=== PATIENT | male | born 1965 | race Hispanic/Latino ===

== ENCOUNTER 2020-12-31 02:26 | Inpatient (IN) | payer OTHER, SELFPAY ==
[~2020-12-31 02:26] MED LIST: Iopamidol 370 76% 100 ML VIAL ONE
[2020-12-31] MEDS ORDERED: ceFAZolin 2 GM/DEX 5% 100 ML BAG ONE (02:31)
[2020-12-31] MEDS ORDERED: Boostrix 0.5 ML (Tdap) VIAL ONE (02:31)
[2020-12-31] MEDS ORDERED: Ondansetron PF 4 MG/2 ML Vial ONE (02:31)
[2020-12-31] MEDS ORDERED: Morphine 4 MG/ML VIAL ONE ×2 (02:31→04:14)
[2020-12-31 02:57] LABS: #Basophils 0.1 thou/uL (0.0-0.2); #Eosinphils 0.2 thou/uL (0.0-0.7); #Lymphocytes 5.3 thou/uL (1.20-3.40); #Monocytes 1.1 thou/uL (0.11-0.59); #Neutrophils 12.2 thou/uL (1.40-6.50); %Basophils 0.5 % (0.0-1.0); %Eosinophils 1.2 % (0.0-10.0); %Monocytes 5.8 % (0.0-10.0); %Neutrophils 64.6 % (42.0-75.0); Hemoglobin 15.5 g/dL (14.0-18.0); Mean Corpuscular HGB CONC 35.2 g/dL (32.0-36.0); Mean Corpuscular Hemoglobin 30.2 pg (27.0-31.0); Mean Corpuscular Volume 85.8 fL (78.0-98.0); Mean Platelet Volume 7.6 fL (7.4-10.4); Platelet Count 286 thou/uL (130-400); RBC Distribution Width 11.9 % (11.5-14.5); Red Blood Cell (RBC) Count 5.14 mill/uL (4.70-6.10); White Blood Cell (WBC) Count 18.9 thou/uL (4.8-10.8)
[2020-12-31 03:10] LABS: ALT (SGPT) 80 U/L (8-55); AST (SGOT) 69 U/L (5-34); Albumin 3.7 g/dL (3.5-5.0); Alkaline Phosphatase 89 U/L (40-110); Anion Gap 18 mmol/L (10-20); BUN (Urea Nitrogen) 15 mg/dL (8.4-25.7); Bilirubin, Total 0.6 mg/dL (0.2-1.2); Calc. Creatinine Clearance 0 mL/min (70-130); Calcium 8.8 mg/dL (7.8-10.44); Carbon Dioxide 16 mmol/L (22-29); Chloride 107 mmol/L (98-107); Globulin 2.4 g/dL (2.4-3.5); Glucose 330 mg/dL (70-105); Lipase 21 U/L (8-78); Potassium 3.7 mmol/L (3.5-5.1); Protein, Total 6.1 g/dL (6.0-8.3); Sodium 137 mmol/L (136-145)
[2020-12-31] MEDS ORDERED: Diazepam 10 MG/2 ML SYRINGE ONE (03:28)
[2020-12-31] MEDS ORDERED: Fentanyl 100 MCG/2 ML VIAL ONE ×2 (03:41→07:49)
[2020-12-31] MEDS ORDERED: Neomycin-Polymyxin 1 ML AMP ONE (04:23)
[2020-12-31] MEDS ORDERED: Dextrose 5% in Water 1,000 ML IV PRN (04:43)
[2020-12-31] MEDS ORDERED: Morphine 4 MG/ML VIAL SLOW IVP PRN (04:43)
[2020-12-31] MEDS ORDERED: Ondansetron PF 4 MG/2 ML Vial IVP PRN (04:43)
[2020-12-31] MEDS ORDERED: Dextrose 50% Abboject 50 ML SYRINGE SLOW IVP PRN (04:43)
[2020-12-31] MEDS ORDERED: Sodium Chloride 0.9% 1,000 ML IV SCH (04:45)
[2020-12-31] MEDS ORDERED: Cyclobenzaprine 10 MG TAB PO PRN (04:47)
[2020-12-31] MEDS ORDERED: traMADol HCl 50 MG TAB PO PRN (04:47)
[2020-12-31] MEDS ORDERED: Succinylcholine 200 MG/10 ml SYRINGE FS ONE (04:50)
[2020-12-31] MEDS ORDERED: PROPOFOL 200 MG/20 ML VIAL ONE (04:50)
[2020-12-31] MEDS ORDERED: Glycopyrrolate 0.2 MG/ML 5 ML SYRINGE ONE (04:50)
[2020-12-31] MEDS ORDERED: Lidocaine 1% PF 5 ML VIAL ONE (04:50)
[2020-12-31] MEDS ORDERED: Rocuronium Bromide 10 MG/ML (10ML VIAL) ONE (04:50)
[2020-12-31] MEDS ORDERED: Insulin Regular 300 UNITS/3 ML VIAL ONE (05:03)
[2020-12-31] MEDS ORDERED: Ondansetron HCl/PF 4 MG/2 ML Vial IVP PRN (06:44)
[2020-12-31] MEDS ORDERED: Promethazine HCl 25 MG/ML VIAL IVPB PRN (06:44)
[2020-12-31] MEDS ORDERED: Promethazine HCl 25 MG/ML VIAL IM PRN (06:44)
[2020-12-31 07:40] LABS: SARS-CoV-2 NAA Rapid Test Not Detected (NotDetected)
[2020-12-31 10:46] VITALS: BMI 42.0
[2020-12-31] MEDS: Gabapentin 300 MG CAP PO SCH ×3 (11:01→20:18)
[2020-12-31] MEDS: Polyethylene Glycol 3350 17 GM Packet PO SCH (11:03)
[2020-12-31] MEDS: Senokot S 8.6-50 MG TAB PO SCH ×2 (11:03→20:17)
[2020-12-31] MEDS: Famotidine 20 MG TAB PO SCH ×2 (11:03→20:17)
[2020-12-31] MEDS: Acetaminophen 500 MG TAB PO SCH ×4 (11:08→23:30)
[2020-12-31] MEDS: Ibuprofen 200 MG TAB PO SCH ×4 (13:52→20:20)
[2020-12-31] MEDS: CEFAZOLIN 2 GM in Premix Bag 1 BAG IVPB SCH ×3 (15:00→22:28)
[2020-12-31] MEDS: Insulin Regular 300 UNITS/3 ML VIAL SC PRN ×2 (18:36→21:59)
[2020-12-31] MEDS: traMADol HCl 50 MG TAB PO PRN (21:58)
[2021-01-01 05:31] LABS: #Basophils 0.1 thou/uL (0.0-0.2); #Eosinphils 0.1 thou/uL (0.0-0.7); #Lymphocytes 3.1 thou/uL (1.20-3.40); #Neutrophils 6.1 thou/uL (1.40-6.50); %Basophils 0.5 % (0.0-1.0); %Eosinophils 1.3 % (0.0-10.0); %Lymphocytes 29.7 % (21.0-51.0); %Monocytes 9.4 % (0.0-10.0); %Neutrophils 59.1 % (42.0-75.0); Hemoglobin 12.3 g/dL (14.0-18.0); Mean Corpuscular HGB CONC 34.3 g/dL (32.0-36.0); Mean Corpuscular Hemoglobin 29.5 pg (27.0-31.0); Mean Corpuscular Volume 85.9 fL (78.0-98.0); Mean Platelet Volume 7.7 fL (7.4-10.4); Platelet Count 216 thou/uL (130-400); RBC Distribution Width 11.9 % (11.5-14.5); Red Blood Cell (RBC) Count 4.17 mill/uL (4.70-6.10); White Blood Cell (WBC) Count 10.3 thou/uL (4.8-10.8)
[2021-01-01 05:38] LABS: Anion Gap 11 mmol/L (10-20); BUN (Urea Nitrogen) 10 mg/dL (8.4-25.7); Calc. Creatinine Clearance 158 mL/min (70-130); Carbon Dioxide 24 mmol/L (22-29); Chloride 102 mmol/L (98-107); Glucose 206 mg/dL (70-105); Magnesium 1.7 mg/dL (1.6-2.6); Phosphorus 2.8 mg/dL (2.3-4.7); Potassium 3.4 mmol/L (3.5-5.1); Sodium 134 mmol/L (136-145)
[2021-01-01] MEDS: Insulin Regular 300 UNITS/3 ML VIAL SC PRN ×3 (06:19→22:12)
[2021-01-01] MEDS: Ibuprofen 200 MG TAB PO SCH ×3 (06:20→20:23)
[2021-01-01] MEDS: Acetaminophen 500 MG TAB PO SCH ×3 (06:21→20:21)
[2021-01-01] MEDS: CEFAZOLIN 2 GM in Premix Bag 1 BAG IVPB SCH ×2 (06:29→16:45)
[2021-01-01] MEDS ORDERED: Magnesium Sulfate 3 GM in Sodium Chloride 0.9% 100 ML IV SCH (08:00)
[2021-01-01] MEDS ORDERED: Potassium Phosphate 30 MMOL, Magnesium Sulfate 3 GM in Sodium Chloride 0.9% 250 ML 250 ML IVPB SCH (08:00)
[2021-01-01] MEDS ORDERED: Insulin Regular 300 UNITS/3 ML VIAL SC PRN (09:02)
[2021-01-01] MEDS: Senokot S 8.6-50 MG TAB PO SCH ×2 (09:23→20:23)
[2021-01-01] MEDS: Famotidine 20 MG TAB PO SCH ×2 (09:24→20:23)
[2021-01-01] MEDS: Gabapentin 300 MG CAP PO SCH ×3 (09:25→20:23)
[2021-01-01] MEDS: Polyethylene Glycol 3350 17 GM Packet PO SCH (09:28)
[2021-01-01] MEDS: Enoxaparin Sodium 30 MG/0.3 ML SYRINGE SC SCH ×2 (09:47→20:24)
[2021-01-01] MEDS: Lantus 1000 UNITS/10 ML VIAL SC SCH (10:01)
[2021-01-01] MEDS ORDERED: Magnesium Citrate 300 ML BOT PO SCH (10:45)
[2021-01-01] MEDS ORDERED: glipiZIDE 5 MG TAB PO SCH (19:45)
[2021-01-01] MEDS ORDERED: metFORMIN 500 MG TAB PO SCH (19:45)
[2021-01-01] MEDS: Atorvastatin Calcium 20 MG TAB PO SCH (20:23)
[2021-01-01] MEDS: CEFAZOLIN 2 GM, Admixture Fee 1 EACH in Sodium Chloride 0.9% 100 ML IVPB SCH (22:12)
[2021-01-02] MEDS: Acetaminophen 500 MG TAB PO SCH ×3 (05:27→17:11)
[2021-01-02] MEDS: Ibuprofen 200 MG TAB PO SCH ×2 (05:27→14:37)
[2021-01-02] MEDS: CEFAZOLIN 2 GM, Admixture Fee 1 EACH in Sodium Chloride 0.9% 100 ML IVPB SCH (05:27)
[2021-01-02 06:26] LABS: Anion Gap 12 mmol/L (10-20); BUN (Urea Nitrogen) 10 mg/dL (8.4-25.7); Calc. Creatinine Clearance 168 mL/min (70-130); Calcium 8.2 mg/dL (7.8-10.44); Carbon Dioxide 27 mmol/L (22-29); Chloride 105 mmol/L (98-107); Glucose 155 mg/dL (70-105); Magnesium 2.3 mg/dL (1.6-2.6); Potassium 3.5 mmol/L (3.5-5.1); Sodium 140 mmol/L (136-145)
[2021-01-02] MEDS ORDERED: Potassium Chloride 20 MEQ TAB PO SCH (08:00)
[2021-01-02] MEDS: Enoxaparin Sodium 30 MG/0.3 ML SYRINGE SC SCH (08:52)
[2021-01-02] MEDS: Polyethylene Glycol 3350 17 GM Packet PO SCH (08:52)
[2021-01-02] MEDS: Senokot S 8.6-50 MG TAB PO SCH (08:53)
[2021-01-02] MEDS: Lantus 1000 UNITS/10 ML VIAL SC SCH (08:53)
[2021-01-02] MEDS: glipiZIDE 5 MG TAB PO SCH ×2 (08:53→17:11)
[2021-01-02] MEDS: metFORMIN 500 MG TAB PO SCH ×2 (08:54→17:11)
[2021-01-02] MEDS: Atorvastatin Calcium 20 MG TAB PO SCH (08:54)
[2021-01-02] MEDS: Famotidine 20 MG TAB PO SCH (08:54)
[2021-01-02] MEDS: Gabapentin 300 MG CAP PO SCH ×2 (08:54→14:37)
[2021-01-02] MEDS ORDERED: Potassium Chloride 10 MEQ in Premix Bag 1 BAG IVPB SCH (09:00)
[2021-01-02] MEDS ORDERED: Lisinopril 10 MG TAB PO SCH (09:00)
[2021-01-02 11:44] VITALS: BP 151/87; TEMP 98.8
[2021-01-02] MEDS: traMADol HCl 50 MG TAB PO PRN (14:40)
== END 2021-01-02 17:30 | disposition home or self-care (01) | DRG 493 ==
LOC: ERS 02:26 → SDC 04:35 → SURG B 04:47
PROVIDERS: ADMIT Orthopaedic Surgery; ATTEND Surgery
PROC: 0QSG06Z Reposition Right Tibia with Intramedullary Internal Fixation Device, Open Approach (ICD-10-PCS; principal; 2020-12-31)
DX: S82.201B Unspecified fracture of shaft of right tibia, initial encounter for open fracture type I or II (principal); Z68.42 Body mass index [BMI] 45.0-49.9, adult; S82.401B Unspecified fracture of shaft of right fibula, initial encounter for open fracture type I or II; V09.9XXA Pedestrian injured in unspecified transport accident, initial encounter; Y92.89 Other specified places as the place of occurrence of the external cause; I10 Essential (primary) hypertension; E11.9 Type 2 diabetes mellitus without complications; K40.90 Unilateral inguinal hernia, without obstruction or gangrene, not specified as recurrent; E78.5 Hyperlipidemia, unspecified; E66.9 Obesity, unspecified; Z20.822 Contact with and (suspected) exposure to COVID-19
CPT/HCPCS: 29515; 36415; 36416; 70450; 70486; 71260; 72125; 74177; 76000; 80048; 80053; 83690; 83735; 84100; 85025; 90471; 90715; 93005; 96365; 96374; 96375; C1713; G0390; J0690; J1650; J1815; J2270; J2405; J2704; J3010; J3360; J3475; J3480; J3490; J7050; Q9967; U0002

== ENCOUNTER 2021-02-19 13:57 | Inpatient (IN) | payer OTHER, SELFPAY ==
[2021-02-19 16:43] LABS: #Basophils 0.1 thou/uL (0.0-0.2); #Eosinphils 0.1 thou/uL (0.0-0.7); #Lymphocytes 2.7 thou/uL (1.20-3.40); #Monocytes 0.7 thou/uL (0.11-0.59); %Basophils 0.8 % (0.0-1.0); %Monocytes 7.2 % (0.0-10.0); Hemoglobin 15.8 g/dL (14.0-18.0); Mean Corpuscular HGB CONC 31.4 g/dL (32.0-36.0); Mean Corpuscular Hemoglobin 27.4 pg (27.0-31.0); Mean Corpuscular Volume 87.2 fL (78.0-98.0); Mean Platelet Volume 7.2 fL (7.4-10.4); Platelet Count 313 thou/uL (130-400); RBC Distribution Width 11.9 % (11.5-14.5); Red Blood Cell (RBC) Count 5.76 mill/uL (4.70-6.10); White Blood Cell (WBC) Count 9.6 thou/uL (4.8-10.8)
[2021-02-19 16:54] VITALS: BMI 39.8
[2021-02-19] MEDS ORDERED: TETANUS AND DIPHTHERIA TOX/PF 0.5 ML DISP.SYRIN IM SCH (17:00)
[2021-02-19] MEDS ORDERED: traMADol HCl 50 MG TAB PO PRN (17:00)
[2021-02-19] MEDS ORDERED: Communication Order-Pharmacy FS SCH (17:00)
[2021-02-19] MEDS ORDERED: Dextrose 5% in Water 1,000 ML IV PRN (18:51)
[2021-02-19] MEDS ORDERED: Dextrose 50% Abboject 50 ML SYRINGE SLOW IVP PRN (18:51)
[2021-02-19] MEDS ORDERED: Melatonin 3 MG TAB PO PRN (18:53)
[2021-02-19] MEDS ORDERED: hydrALAZINE 20 MG/ML VIAL SLOW IVP PRN (18:53)
[2021-02-19] MEDS ORDERED: Morphine 4 MG/ML VIAL SLOW IVP PRN ×2 (18:53→19:16)
[2021-02-19] MEDS ORDERED: Bisacodyl 5 MG TAB PO PRN (18:55)
[2021-02-19] MEDS ORDERED: Senokot S 8.6-50 MG TAB PO PRN (18:55)
[2021-02-19] MEDS ORDERED: Bisacodyl 10 MG SUPP PR PRN (18:55)
[2021-02-19] MEDS ORDERED: Ondansetron PF 4 MG/2 ML Vial IVP PRN (18:55)
[2021-02-19] MEDS ORDERED: Non-Formulary Item 1 EACH (Dulaglutide [Trulicity] 0.75 MG/0.5 ML Pen.Injctr) SC SCH (19:00)
[2021-02-19 19:42] LABS: ALT (SGPT) 32 U/L (8-55); AST (SGOT) 19 U/L (5-34); Albumin 4.2 g/dL (3.5-5.0); Alkaline Phosphatase 108 U/L (40-110); Anion Gap 14 mmol/L (10-20); BUN (Urea Nitrogen) 18 mg/dL (8.4-25.7); Bilirubin, Total 0.5 mg/dL (0.2-1.2); Calc. Creatinine Clearance 155 mL/min (70-130); Calcium 9.6 mg/dL (7.8-10.44); Carbon Dioxide 22 mmol/L (22-29); Chloride 103 mmol/L (98-107); Globulin 3.2 g/dL (2.4-3.5); Glucose 181 mg/dL (70-105); Protein, Total 7.4 g/dL (6.0-8.3); Sodium 135 mmol/L (136-145)
[2021-02-19] MEDS: Atorvastatin Calcium 20 MG TAB PO SCH (20:12)
[2021-02-19] MEDS: Famotidine/PF 20 mg/2ml Vial SLOW IVP SCH (20:12)
[2021-02-19] MEDS: Gabapentin 300 MG CAP PO SCH (20:12)
[2021-02-19] MEDS: HumaLOG 300 UNITS/3 ML VIAL SC PRN (20:18)
[2021-02-19 21:17] LABS: SARS-CoV-2 PCR by NAA Not Detected (NotDetected)
[2021-02-20 05:19] LABS: #Basophils 0.1 thou/uL (0.0-0.2); #Eosinphils 0.3 thou/uL (0.0-0.7); #Lymphocytes 3.7 thou/uL (1.20-3.40); #Neutrophils 6.4 thou/uL (1.40-6.50); %Basophils 0.6 % (0.0-1.0); %Eosinophils 2.3 % (0.0-10.0); %Lymphocytes 32.4 % (21.0-51.0); %Monocytes 8.5 % (0.0-10.0); %Neutrophils 56.2 % (42.0-75.0); Hemoglobin 14.6 g/dL (14.0-18.0); Mean Corpuscular HGB CONC 32.5 g/dL (32.0-36.0); Mean Corpuscular Hemoglobin 28.3 pg (27.0-31.0); Mean Corpuscular Volume 87.1 fL (78.0-98.0); Mean Platelet Volume 6.9 fL (7.4-10.4); Platelet Count 303 thou/uL (130-400); RBC Distribution Width 11.9 % (11.5-14.5); Red Blood Cell (RBC) Count 5.15 mill/uL (4.70-6.10); White Blood Cell (WBC) Count 11.4 thou/uL (4.8-10.8)
[2021-02-20 05:43] LABS: ALT (SGPT) 32 U/L (8-55); AST (SGOT) 26 U/L (5-34); Albumin 3.7 g/dL (3.5-5.0); Alkaline Phosphatase 96 U/L (40-110); Anion Gap 13 mmol/L (10-20); BUN (Urea Nitrogen) 16 mg/dL (8.4-25.7); Bilirubin, Total 0.5 mg/dL (0.2-1.2); Calc. Creatinine Clearance 151 mL/min (70-130); Calcium 9.3 mg/dL (7.8-10.44); Carbon Dioxide 24 mmol/L (22-29); Cardiac Risk 4.3 (Less than 4.5); Chloride 105 mmol/L (98-107); Cholesterol 124 mg/dl (< 200 Desired); Glucose 149 mg/dL (70-105); HDL Cholesterol 29 mg/dL (>60 Neg Risk); LDL Cholesterol, Calculated 51 mg/dL; Potassium 4.3 mmol/L (3.5-5.1); Protein, Total 6.7 g/dL (6.0-8.3); Sodium 138 mmol/L (136-145); Triglycerides 221 mg/dL (Less than 150)
[2021-02-20] MEDS: Gabapentin 300 MG CAP PO SCH (07:47)
[2021-02-20] MEDS: Famotidine/PF 20 mg/2ml Vial SLOW IVP SCH (07:47)
[2021-02-20] MEDS: Atorvastatin Calcium 20 MG TAB PO SCH (07:48)
[2021-02-20] MEDS ORDERED: Neomycin-Polymyxin 1 ML AMP ONE ×2 (14:26→15:10)
[2021-02-20] MEDS ORDERED: Fentanyl 100 MCG/2 ML VIAL ONE (14:49)
[2021-02-20] MEDS ORDERED: Dexamethasone 20 MG/5 ML VIAL ONE (14:50)
[2021-02-20] MEDS ORDERED: Ondansetron PF 4 MG/2 ML Vial ONE (14:50)
[2021-02-20] MEDS ORDERED: PROPOFOL 200 MG/20 ML VIAL ONE (14:50)
[2021-02-20] MEDS ORDERED: PHENYLEPHRINE-NS 100 MCG/ML 10 ML SYRINGE ONE (14:50)
[2021-02-20] MEDS ORDERED: Lidocaine 1% PF 5 ML VIAL ONE (14:50)
[2021-02-20] MEDS: metFORMIN 500 MG TAB PO SCH (15:28)
[2021-02-20] MEDS: glipiZIDE 5 MG TAB PO SCH (15:28)
[2021-02-20] MEDS: Senokot S 8.6-50 MG TAB PO SCH (21:05)
[2021-02-20] MEDS: HumaLOG 300 UNITS/3 ML VIAL SC PRN (21:25)
[2021-02-20] MEDS ORDERED: ceFAZolin 2 GM/DEX 5% 100 ML BAG IVPB SCH (23:00)
[2021-02-20] MEDS ORDERED: CEFAZOLIN 2 GM in Premix Bag 1 BAG IVPB SCH (23:59)
[2021-02-20] MEDS ORDERED: CEFAZOLIN 2 GM in Sodium Chloride 0.9% 100 ML IVPB SCH (23:59)
[2021-02-21] MEDS: HumaLOG 300 UNITS/3 ML VIAL SC PRN ×2 (06:26→12:20)
[2021-02-21 07:50] LABS: #Lymphocytes 2.4 thou/uL (1.20-3.40); #Monocytes 0.9 thou/uL (0.11-0.59); #Neutrophils 8.1 thou/uL (1.40-6.50); %Basophils 0.3 % (0.0-1.0); %Eosinophils 0.1 % (0.0-10.0); %Lymphocytes 20.6 % (21.0-51.0); %Monocytes 7.9 % (0.0-10.0); %Neutrophils 71.1 % (42.0-75.0); Hemoglobin 14.4 g/dL (14.0-18.0); Mean Corpuscular HGB CONC 33.2 g/dL (32.0-36.0); Mean Corpuscular Hemoglobin 28.7 pg (27.0-31.0); Mean Corpuscular Volume 86.5 fL (78.0-98.0); Mean Platelet Volume 6.8 fL (7.4-10.4); Platelet Count 315 thou/uL (130-400); RBC Distribution Width 11.6 % (11.5-14.5); Red Blood Cell (RBC) Count 5.02 mill/uL (4.70-6.10); White Blood Cell (WBC) Count 11.4 thou/uL (4.8-10.8)
[2021-02-21] MEDS: glipiZIDE 5 MG TAB PO SCH (08:34)
[2021-02-21] MEDS: Lisinopril 10 MG TAB PO SCH (08:35)
[2021-02-21] MEDS: Senokot S 8.6-50 MG TAB PO SCH ×2 (08:35→20:42)
[2021-02-21] MEDS: metFORMIN 500 MG TAB PO SCH ×2 (08:35→16:48)
[2021-02-21] MEDS: Atorvastatin Calcium 20 MG TAB PO SCH (08:35)
[2021-02-21] MEDS ORDERED: Lantus 1000 UNITS/10 ML VIAL SC SCH (09:00)
[2021-02-21] MEDS: ceFAZolin Sodium/D5W 2 GM in Premix Bag 1 BAG IVPB SCH ×2 (09:07→16:48)
[2021-02-21] MEDS ORDERED: Polyethylene Glycol 3350 17 GM Packet PO PRN (10:11)
[2021-02-21] MEDS: glipiZIDE 10 MG TAB PO SCH (16:48)
[2021-02-22] MEDS: ceFAZolin Sodium/D5W 2 GM in Premix Bag 1 BAG IVPB SCH ×2 (00:16→08:43)
[2021-02-22 08:20] VITALS: BP 129/87; TEMP 97.8
[2021-02-22] MEDS: Lisinopril 10 MG TAB PO SCH (08:44)
[2021-02-22] MEDS: glipiZIDE 10 MG TAB PO SCH (08:44)
[2021-02-22] MEDS: metFORMIN 500 MG TAB PO SCH (08:44)
[2021-02-22] MEDS: Senokot S 8.6-50 MG TAB PO SCH (08:44)
[2021-02-22] MEDS: Atorvastatin Calcium 20 MG TAB PO SCH (08:44)
== END 2021-02-22 11:07 | disposition home or self-care (01) | DRG 605 ==
LOC: SURG B 14:18 → UNDOADMIN 14:18 → T4-B 16:16
PROVIDERS: ADMIT Orthopaedic Surgery; ATTEND Orthopaedic Surgery
PROC: 0JDN3ZZ Extraction of Right Lower Leg Subcutaneous Tissue and Fascia, Percutaneous Approach (ICD-10-PCS; principal; 2021-02-20)
DX: S81.801A Unspecified open wound, right lower leg, initial encounter (principal); E87.1 Hypo-osmolality and hyponatremia; Z20.822 Contact with and (suspected) exposure to COVID-19; X58.XXXA Exposure to other specified factors, initial encounter; E11.40 Type 2 diabetes mellitus with diabetic neuropathy, unspecified; E11.65 Type 2 diabetes mellitus with hyperglycemia; I10 Essential (primary) hypertension; E78.5 Hyperlipidemia, unspecified
CPT/HCPCS: 36415; 36416; 80053; 80061; 85025; 85652; 86140; 87070; 87077; 87186; 87205; J0690; J1100; J1815; J2405; J2704; J3010; J3490; S0028; U0003; U0005